=== PATIENT | male | born 1965 | race Caucasian/White ===

== ENCOUNTER 2018-09-07 11:59 | Emergency (ER) | payer OTHER ==
[2018-09-07 12:33] VITALS: BMI 36.9
--- NOTE | 2018-09-07 13:35 | PDOC ---
History of Present Illness - General Chief Complaint: Back Pain Stated Complaint: LOWER BACK PAIN Time Seen by Provider: 09/07/18 12:41 - History of Present Illness Initial Comments: 09/07/18 13:33 53-year-old male with past medical history significant for chronic back pain, GERD presents for evaluation of left-sided mid back pain. 2 weeks. He states the pain started about 2 weeks ago and resolved appear to Gent today without any precipitating trauma. He describes the pain as a constant dull ache exacerbated with motion with radiaion into the left groin. No systemic symptoms. Past History - Past Medical History Allergies/Adverse Reactions: Allergies Allergy/AdvReac Type Severity Reaction Status Date / Time No Known Allergies Allergy Verified 03/02/15 19:29 Home Medications: Ambulatory Orders Lamotrigine [Lamictal] 100 mg PO DAILY 09/08/14 Neomycin/Polymyxn/Hc [Cortisporin *Otic Suspenstion* -] 5 drop AD Q4HWA #1 bottle 09/08/14 Omeprazole [Prilosec (RX)] 20 mg PO DAILY 09/08/14 Wellbutrin - 25 mg PO DAILY 09/08/14 Diclofenac Potassium [Cataflam] 50 mg PO TID PRN #12 tablet 03/02/15 Methylprednisolone [Medrol Dose David] 4 mg PO ASDIR #21 tablet 09/07/18 COPD: No - Suicide/Smoking/Psychosocial Hx Smoking History: Current every day smoker Have you smoked in the past 12 months: Yes Number of Cigarettes Smoked Daily: 8 Information on smoking cessation initiated: No 'Breaking Loose' booklet given: 09/08/14 Hx Alcohol Use: No Drug/Substance Use Hx: No Substance Use Type: None Review of Systems - Review of Systems Constitutional: No: Fever : No: Dysuria, Hematuria Musculoskeletal: Yes: Back Pain *Physical Exam - Vital Signs Last Vital Signs Temp Pulse Resp BP Pulse Ox 98.4 F 101 H 21 H 131/84 100 09/07/18 12:29 09/07/18 12:29 09/07/18 12:29 09/07/18 12:29 09/07/18 12:29 - Physical Exam Comments: 09/07/18 13:34 Thoracic and lumbar spine skin color and temperature are normal. There is no CVA tenderness. There is a 3 cm circumferential firm fluctuant nontender mass at the left CV angle. No gross sensory motor deficits in bilateral lower extremities. Neurovascularly intact. ED Treatment Course - RADIOLOGY Radiology Studies Ordered: Category Date Time Status ABDOMEN & PELVIS CT W/O CONTR [CT] Stat CT Scan 09/07/18 13:20 Ordered Medical Decision Making - Medical Decision Making 09/07/18 13:34 The mass on the left side of thoracic spine appears to be a lipoma. 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 He is concerned about his back pain and feels there is something more than musculoskeletal pain going on he would like a CAT scan. I do not think this is unreasonable however I do not suspect a stone. 09/07/18 14:59 CT reviewed no acute process. Patient will musculoskeletal back pain. I will place him on a mental dosepak as he cannot take anti-inflammatories he has severe GERD and has been on omeprazole for greater than 4 years. Follow-up with orthopedic spine surgery. 09/07/18 15:02 Pt on, omeprazple, flexeril, and oxycodone at home. *DC/Admit/Observation/Transfer Diagnosis at time of Disposition: Back pain, Strain of fascia at thorax level - Discharge Dispostion Disposition: HOME Condition at time of disposition: Stable Decision to Admit order: No - Referrals Referrals: Olu Portillo MD [Primary Care Provider] - Naun Moreno MD [Staff Physician] - - Patient Instructions Printed Discharge Instructions: DI for Thoracic Back Pain, Thoracic Back Pain Additional Instructions: Please follow-up with your physician regarding the results of her CAT scan as we discussed. Please take the Medrol Dosepak as directed may continue with her Flexeril. Return to the emergency room for worsening symptoms also follow-up with orthopedic spine surgery for your lower back pain. Follow-up with orthopedic spine surgery in 1-2 days for further evaluation and treatment options. Please take the Medrol Dosepak as directed do not take any anti- inflammatory such as Advil Motrin Aleve or ibuprofen. He may take Tylenol as directed. - Post Discharge Activity
[2018-09-07 14:17] LABS: PH,URINE 5.5 (5.0-8.0); URINE APPEARANCE CLEAR; URINE BILIRUBIN NEGATIVE (NEGATIVE); URINE COLOR DK YELLOW; URINE GLUCOSE (UA) NEGATIVE (NEGATIVE); URINE KETONE TRACE (NEGATIVE); URINE LEUK ESTERASE NEGATIVE (NEGATIVE); URINE NITRITE NEGATIVE (NEGATIVE); URINE PROTEIN NEGATIVE (NEGATIVE)
[2018-09-07 15:12] VITALS: BP 135/90; PULSE 91; TEMP 98
== END 2018-09-07 15:12 | disposition home or self-care (01) ==
LOC: JERFT 11:59
DX: M54.5 Low back pain (principal); F17.210 Nicotine dependence, cigarettes, uncomplicated; S29.012A Strain of muscle and tendon of back wall of thorax, initial encounter; X58.XXXA Exposure to other specified factors, initial encounter; Y93.89 Activity, other specified; Y92.89 Other specified places as the place of occurrence of the external cause
CPT/HCPCS: 74176-TC; 81003; 87086; 99282-25

== ENCOUNTER 2019-05-26 14:35 | Emergency (ER) | payer OTHER ==
[2019-05-26 14:44] VITALS: BP 142/76; PULSE 84; TEMP 97.9; BMI 37.6
--- NOTE | 2019-05-26 14:46 | PDOC ---
Attending Attestation - Resident Resident Name: Edgar Rm - HPI HPI: 05/26/19 16:47 Pt presents to the ED complaining of a three week history of RUQ pain. Patient initially also had cough, and was diagnosed with PNA and treated with antibiotics. Cough resolved one week ago, but patient presents to the ED because RUQ pain is worsening. Denies fever, nausea or vomiting. Denies urinary complaints/ - Physicial Exam PE: 05/26/19 17:10 Agree with resident exam. Patient is alert and oriented and in no acute distress. Lungs are clear. Heart regular rate and rhythm without murmurs. Abdomen soft, nontender, non distended, withot guarding or rebound. - Medical Decision Making 05/26/19 17:20 Pt presents to the ED complaining of RUQ pain for three weeks worse in the last three days. Differential includes muscular pain, biliary disease, less likely PNA. CXR is negative for acute findings. Will check labs to evaluate for bilary disease and RUQ US.
--- NOTE | 2019-05-26 15:11 | PDOC ---
History of Present Illness - General Chief Complaint: Pain, Acute Stated Complaint: right abd/chest pain x 2 mnths Time Seen by Provider: 05/26/19 14:46 History Source: Patient Exam Limitations: No Limitations - History of Present Illness Initial Comments: 53 yo M with a hx of hepatitis C (treated), GERD, chronic back pain and bilateral foot pain, and polysubstance abuse hx (last use 2002; sober since then) presents to the emergency department with right flank pain that has been ongoing for 2 months with acute worsening over the past 3 days. Per the patient, he is followed by Dr. Bill Canales and had a cough with right flank pain 2 months ago and treated as a pneumonia with unknown named antibiotics. The cough resolved, however the patient has had persistence of right flank pain. He was given azithromycin on approximately 05/12/2019 and was recently (on 05/19/2019) on cefuroxime for presumed pneumonia. Per the patient, he denies SOB, cough, nausea, vomiting, chest pain, and hx of gallbladder and liver disease. The patient states he had nephrolithiasis 20-30 years ago with no recurrence since. Denies the following: fever, chills, dysuria, hematuria, diarrhea, and back pain. Endorses constipation and skin rash of tinea of which he is on diflucan since 05/19/2019. Past History - Past Medical History Allergies/Adverse Reactions: Allergies Allergy/AdvReac Type Severity Reaction Status Date / Time No Known Allergies Allergy Verified 05/26/19 14:43 Home Medications: Ambulatory Orders Nicotine [Nicotine Patch 21 mg/24 hr] 1 each TD DAILY 05/01/19 Omeprazole 20 mg PO DAILY 05/01/19 Oxycodone HCl/Acetaminophen [Endocet 5-325 Tablet] 0.5 tab PO BID PRN #30 tablet MDD 1 05/16/19 Varenicline Tartrate [Chantix] 1 each PO ASDIR #1 tab.ds.pk 05/16/19 Asthma: No Cancer: No Cardiac Disorders: No COPD: No CHF: No Diabetes: No GI Disorders: Yes (GERD) Disorders: No HTN: No Hypercholesterolemia: No Liver Disease: Yes (treated hep c) Seizures: No Thyroid Disease: No - Psycho Social/Smoking Cessation Hx Smoking History: Current every day smoker Have you smoked in the past 12 months: Yes Number of Cigarettes Smoked Daily: 4 Information on smoking cessation initiated: Yes 'Breaking Loose' booklet given: 09/08/14 Hx Alcohol Use: No Drug/Substance Use Hx: No Substance Use Type: Alcohol, Cocaine, Heroin, Opiates Hx Substance Use Treatment: Yes (detox , rehab, attends 12 step meetings) Review of Systems - Review of Systems Able to Perform ROS?: Yes Is the patient limited Macedonian proficient: No Constitutional: No: Chills, Diaphoresis, Fever, Weakness HEENTM: No: Eye Pain, Ear Pain, Nose Pain, Throat Pain, Mouth Pain Respiratory: No: Cough, Shortness of Breath, Hemoptysis Cardiac (ROS): No: Chest Pain, Lightheadedness, Palpitations, Chest Tightness ABD/GI: No: Constipated, Diarrhea, Nausea, Rectal Bleeding, Vomiting, Tarry Stools : Yes: Flank Pain (right). No: Burning, Dysuria, Hematuria Musculoskeletal: No: Back Pain, Joint Pain, Neck Pain Integumentary: Yes: Rash. No: Bruising, Erythema Neurological: No: Headache, Numbness Psychiatric: No: Change in Appetite Endocrine: No: Unexplained Weight Loss Hematologic/Lymphatic: No: Anemia *Physical Exam - Vital Signs Last Vital Signs Temp Pulse Resp BP Pulse Ox 97.9 F 84 18 142/76 98 05/26/19 14:36 05/26/19 14:36 05/26/19 14:36 05/26/19 14:36 05/26/19 14:36 - Physical Exam General Appearance: Yes: Nourished, Appropriately Dressed, Obese. No: Apparent Distress, Intoxicated HEENT: positive: EOMI, CHARLIE, Normal Voice, Symmetrical, Pharynx Normal, Hearing Grossly Normal. negative: Pale Conjunctivae, Scleral Icterus (R), Scleral Icterus (L), Muffled/Hoarse voice, Pharyngeal Erythema, Tonsillar Exudate, Tonsillar Erythema, Nasal Congestion, Rhinorrhea, Sinus Tenderness, Excessive drooling Neck: positive: Trachea midline, Supple. negative: Tender, Lymphadenopathy (R), Lymphadenopathy (L), Tender lateral, Tender midline Respiratory/Chest: positive: Lungs Clear, Normal Breath Sounds. negative: Chest Tender, Respiratory Distress, Accessory Muscle Use, Rhonchi, Stridor, Wheezing, Hyperresonant Cardiovascular: positive: Regular Rhythm, Regular Rate, S1, S2. negative: Systolic Murmur Gastrointestinal/Abdominal: positive: Normal Bowel Sounds, Flat, Soft. negative: Tender Lymphatic: negative: Adenopathy Musculoskeletal: positive: Normal Inspection. negative: CVA Tenderness, Vertebral Tenderness Extremity: positive: Normal Capillary Refill, Normal Range of Motion. negative: Normal Inspection (tinea corpis noted on the UE bilaterally. ), Tender, Swelling, Calf Tenderness Integumentary: positive: Normal Color, Dry, Warm, Rash (tinea noted on examination (reference extremity)). negative: Swelling, Ecchymosis Neurologic: positive: Fully Oriented, Alert, Normal Mood/Affect ED Treatment Course - LABORATORY CBC & Chemistry Diagram: 05/26/19 16:10 05/26/19 16:07 Medical Decision Making - Medical Decision Making 53 yo M with a hx of hepatitis C (treated), GERD, chronic back pain and bilateral foot pain, and polysubstance abuse hx (last use 2002; sober since then) presents to the emergency department with right flank pain that has been ongoing for 2 months with acute worsening over the past 3 days. Initial vitals: Initial Vital Signs Temp Pulse Resp BP Pulse Ox 97.9 F 84 18 142/76 98 05/26/19 14:36 05/26/19 14:36 05/26/19 14:36 05/26/19 14:36 05/26/19 14:36 Work up: patient presents with right flank pain denies hx of gallbladder disease and liver disease. the patient was recently treated with anti-fungal which can have hepatic toxicity. will obtain labs to evaluate infectious state and alt/ast. POCUS of the gallbladder: no cholelithiasis. cbd within normal limits. gb wall diameter within normal limits. no distension of GB. no hydronephrosis of the right kidney WIll obtain US of the liver and gallbladder. Laboratory Tests 05/26/19 05/26/19 05/26/19 16:07 16:10 16:22 WBC 8.8 RBC 4.57 Hgb 15.0 Hct 43.3 MCV 94.8 MCH 32.9 MCHC 34.7 RDW 13.0 Plt Count 287 MPV 8.6 Absolute Neuts (auto) 5.2 Neutrophils % 59.9 Lymphocytes % 30.3 Monocytes % 8.3 Eosinophils % 0.8 Basophils % 0.7 Sodium 134 L Potassium 4.2 Chloride 106 Carbon Dioxide 25 Anion Gap 3 L BUN 12.0 Creatinine 1.0 Est GFR (CKD-EPI)AfAm 99.15 Est GFR (CKD-EPI)NonAf 85.55 Random Glucose 100 Calcium 8.9 Total Bilirubin 0.4 AST 48 H ALT 67 H Alkaline Phosphatase 58 Total Protein 7.3 Albumin 4.2 Urine Color Yellow Urine Appearance Clear Urine pH 6.5 Urine Protein Negative Urine Glucose (UA) Negative Urine Ketones Negative Urine Blood Negative Urine Nitrite Negative Urine Bilirubin Negative Urine Urobilinogen 0.2 Ur Leukocyte Esterase Negative alt and ast elevated no blood noted in the UA, less likely nephrolithiasis. Awaiting results of the abdomen US. 05/26/19 18:19 US negative for acute processes in the liver and gallbladder. diffuse fatty liver noted. Advised hte patient to follow up with the caster helper within 1 week after discharge. the patient understood this and agrees to the plan The patient has marshall of symptoms after toradol administration Dispo: Discharge Discharge - Discharge Information Problems reviewed: Yes Clinical Impression/Diagnosis: Fatty liver Condition: Stable - Admission No - Follow up/Referral Referrals: [facility] [place] [facility] [Provider Group] Oralia Porter MD [Staff Physician] - - Patient Discharge Instructions Patient Printed Discharge Instructions: Nonalcoholic Fatty Liver Disease, DI for Nonalcoholic Fatty Liver Disease Additional Instructions: Please follow up with the caster helper regarding your elevated liver values and diffuse fatty liver within 1 week after discharge. Please follow up with your primary medical doctor in 1 week after discharge. Please return to the emergency department if you have worsening symptoms or new concerning symptoms. Thank you. - Post Discharge Activity
[2019-05-26 16:28] LABS: BASO % 0.7 % (0-2.0); EOS % 0.8 % (0-4.5); HEMATOCRIT 43.3 % (35.4-49); LYMPH % 30.3 % (8-40); MCH 32.9 pg (25.7-33.7); MCHC 34.7 g/dl (32.0-35.9); MEAN CELL VOLUME 94.8 fl (80-96); MEAN PLT VOLUME 8.6 fl (7.5-11.1); MONO % 8.3 % (3.8-10.2); NEUT % 59.9 % (42.8-82.8); PLATELET COUNT 287 K/MM3 (134-434); RBC 4.57 M/mm3 (4.00-5.60); WHITE BLOOD COUNT 8.8 K/mm3 (4.0-10.8)
[2019-05-26 16:35] LABS: ALBUMIN 4.2 g/dl (3.4-5.0); BILIRUBIN,TOTAL 0.4 mg/dl (0.2-1); CALCIUM 8.9 mg/dl (8.5-10); POTASSIUM 4.2 mmol/L (3.5-5.1); TOT PROT 7.3 g/dl (6.4-8.2)
[2019-05-26] MEDS ORDERED: KETOROLAC TROMETHAMINE 15 MG/ML VIAL IVPUSH ONE (16:48)
[2019-05-26] MEDS ORDERED: KETOROLAC TROMETHAMINE 15 MG/ML VIAL ONE (16:58)
== END 2019-05-26 18:27 | disposition home or self-care (01) ==
LOC: FER 14:35
PROC: 3E0333Z Introduction of Anti-inflammatory into Peripheral Vein, Percutaneous Approach (ICD-10-PCS; principal; 2019-05-26)
DX: K76.0 Fatty (change of) liver, not elsewhere classified (principal); B19.20 Unspecified viral hepatitis C without hepatic coma; K21.9 Gastro-esophageal reflux disease without esophagitis; G89.29 Other chronic pain; F19.10 Other psychoactive substance abuse, uncomplicated; F17.210 Nicotine dependence, cigarettes, uncomplicated
CPT/HCPCS: 36415; 71046-TC-FY; 76705-TC; 80053; 81003; 83690; 85025; 87086; 96374; 99285-25

== ENCOUNTER 2019-09-27 18:23 | Emergency (ER) | payer OTHER ==
[2019-09-27 18:30] VITALS: BP 136/85; PULSE 84; TEMP 98.1; BMI 37.6
[2019-09-27] MEDS ORDERED: AMPICILLIN NA/SULBACTAM NA 3 GM in SODIUM CHLORIDE 100 ML IVPB ONE (18:46)
[2019-09-27] MEDS ORDERED: AMPICILLIN NA/SULBACTAM NA 3 GM VIAL ONE (18:57)
--- NOTE | 2019-09-27 18:59 | PDOC ---
Documentation entered by Paty Collier SCRIBE, acting as scribe for Thaddeus Lane MD. Thaddeus Lane MD: This documentation has been prepared by the Nando medina Maria, SCRIBE, under my direction and personally reviewed by me in its entirety. I confirm that the documentation accurately reflects all work, treatment, procedures, and medical decision making performed by me. History of Present Illness - General Chief Complaint: Ear Problem Stated Complaint: LEFT EAR PAIN Time Seen by Provider: 09/27/19 18:36 History Source: Patient Exam Limitations: No Limitations - History of Present Illness Initial Comments: 09/27/19 18:57 The patient is a 54 year old male with a significant past medical history of hepatitis C (treated), GERD, chronic back pain and bilateral foot pain, and polysubstance abuse hx (last use 2002; sober since then) who presents to the emergency department with left ear pain. As per patient, he was swimming in his friend's swimming pool and felt as though there was water in his ear and states he used a Q-tip and hydrogen peroxide with no release prompting him to [facility] (09/25/2019) where he was prescribed antibiotics for his pain without relief of pain prompting him to [facility]. 10/11/19 15:32 Physical exam: Alert and oriented well-developed well-nourished no acute distress cooperative Afebrile, vital signs normal Right ear canal and TM clear. Left ear canal swollen, small amount of debris present in canal, TM not visualized. No erythema of the ear canal or of the external ear/face. No induration or tenderness of the surrounding fascial tissue. No adenopathy. Impression: External otitis, Plan: Dose of intravenous antibiotics, followed by p.o. Follow-up ENT 24 hours for further evaluation and possible wick insertion. No sign of serious mastoid or facial infection. Past History - Medical History Allergies/Adverse Reactions: Allergies Allergy/AdvReac Type Severity Reaction Status Date / Time No Known Allergies Allergy Verified 05/26/19 14:43 Home Medications: Ambulatory Orders Nicotine [Nicotine Patch 21 mg/24 hr] 1 each TD DAILY 05/01/19 Omeprazole 20 mg PO DAILY 05/01/19 Gabapentin [Neurontin -] 300 mg PO BID 09/13/19 Varenicline Tartrate [Chantix] 1 mg PO BID #30 tablet 09/13/19 Betamethasone Dipropionate [Diprolene 0.05% Ointment -] 1 applic TP DAILY 09/14/19 Ibuprofen 800 mg PO BID PRN #30 tablet 09/14/19 Rosuvastatin [Crestor -] 5 mg PO HS 09/14/19 Docusate Sodium [Colace -] 100 mg PO TID #90 capsule 10/10/19 Oxycodone HCl/Acetaminophen [Percocet 10-325 mg Tablet] 1 each PO TID PRN #21 tablet MDD 3 10/10/19 Asthma: No Cancer: No Cardiac Disorders: No COPD: No CHF: No Diabetes: No GI Disorders: Yes (GERD) Disorders: No HTN: No Hypercholesterolemia: No Liver Disease: Yes (treated hep c) Seizures: No Thyroid Disease: No Other medical history: HERNIATED DISC,ARTHRITIS - Psycho-Social/Smoking History Smoking History: Never smoked Have you smoked in the past 12 months: Yes Number of Cigarettes Smoked Daily: 4 Information on smoking cessation initiated: No 'Breaking Loose' booklet given: 05/26/19 - Substance Abuse Hx (Audit-C & DAST Scrn) How often the patient has a drink containing alcohol: Never Score: In Men: 4 or > Positive; In Women: 3 or > Positive: 0 Screen Result (Pos requires Nsg. Audit-10AR): Negative In the last yr the pt used illegal drug/Rx for NonMed reason: No Score: Yes response is considered Positive: 0 Screen Result (Positive result requires Nsg. DAST-10): Negative Review of Systems - Review of Systems Able to Perform ROS?: Yes Comments:: 09/27/19 18:57 CONSTITUTIONAL: Absent: fever, no chills, no fatigue EYES: Absent: visual changes ENT:+ear pain. Absent: no sore throat CARDIOVASCULAR: Absent: chest pain, no palpitations RESPIRATORY: Absent: cough, no SOB GI: Absent: abdominal pain, no nausea, no vomiting, no constipation, no diarrhea GENITOURINARY: Absent: dysuria, no frequency, no hematuria MUSKULOSKELETAL: Absent: back pain, no arthralgia, no myalgia SKIN: Absent: rash NEURO: Absent: headache *Physical Exam - Vital Signs Last Vital Signs Temp Pulse Resp BP Pulse Ox 98.1 F 84 16 136/85 97 09/27/19 18:24 09/27/19 18:24 09/27/19 18:24 09/27/19 18:24 09/27/19 18:24 - Physical Exam 09/27/19 18:57 GENERAL: Well-appearing, well-nourished. No apparent distress. HEENT: +Right ear was clear, left ear canal was swollen with considerable debri visible. was not visualized. No sign of inflammation of surrounding tissues or erythema. Normocephalic, atraumatic. PERRL, EOM intact. CARDIOVASCULAR: Normal S1, S2. Regular rate and rhythm. PULMONARY: Clear to auscultation bilaterally. ABDOMEN: Soft, non-distended, non-tender. EXTREMITIES: Normal ROM in all four extremities. No gross deformities. SKIN: Warm, dry. No rash NEUROLOGICAL: No focal neurological deficits. Discharge - Discharge Information Problems reviewed: Yes Clinical Impression/Diagnosis: Otitis externa Qualifiers: Otitis externa type: swimmer's ear Chronicity: acute Laterality: left Qualified Code(s): H60.332 - Swimmer's ear, left ear Condition: Stable Disposition: HOME - Admission No - Follow up/Referral Referrals: Collins Flores MD [Staff Physician] - Call tomorrow - Patient Discharge Instructions Patient Printed Discharge Instructions: DI for Otitis Externa Additional Instructions: Continue your pain medication as directed Change antibiotics as directed See ENT specialist tomorrow as recommended. - Post Discharge Activity
== END 2019-09-27 19:44 | disposition home or self-care (01) ==
LOC: FER 18:23
PROC: 3E033GC Introduction of Other Therapeutic Substance into Peripheral Vein, Percutaneous Approach (ICD-10-PCS; principal; 2019-09-27)
DX: H60.332 Swimmer's ear, left ear (principal)
CPT/HCPCS: 99284-25

== ENCOUNTER 2020-09-03 12:22 | Emergency (ER) | payer OTHER ==
[2020-09-03 12:37] VITALS: BP 137/104; PULSE 94; TEMP 99.2; BMI 36.9
== END 2020-09-03 13:18 | disposition home or self-care (01) ==
LOC: FER 12:22
DX: L03.012 Cellulitis of left finger (principal); H60.501 Unspecified acute noninfective otitis externa, right ear
CPT/HCPCS: 99282-25

== ENCOUNTER 2021-01-29 13:55 | Emergency (ER) | payer OTHER ==
[2021-01-29 14:15] VITALS: BP 143/81; PULSE 77; TEMP 98
[2021-01-29] MEDS ORDERED: KETOROLAC TROMETHAMINE 30 MG/1 ML VIAL IM ONE (14:40)
[2021-01-29] MEDS ORDERED: KETOROLAC TROMETHAMINE 30 MG/1 ML VIAL ONE (14:48)
== END 2021-01-29 15:29 | disposition home or self-care (01) ==
LOC: JERFT 13:55
PROC: 3E023GC Introduction of Other Therapeutic Substance into Muscle, Percutaneous Approach (ICD-10-PCS; principal; 2021-01-29)
DX: M79.671 Pain in right foot (principal)
CPT/HCPCS: 73610-TC-RT-FY; 73630-TC-RT-FY; 99284-25

== ENCOUNTER 2022-08-28 09:22 | Emergency (ER) | payer OTHER ==
[2022-08-28 09:45] VITALS: BP 142/104; PULSE 80; RESP 19; TEMP 98; BMI 37.6
== END 2022-08-28 10:30 | disposition home or self-care (01) ==
LOC: FER 09:22
DX: M25.572 Pain in left ankle and joints of left foot (principal)
CPT/HCPCS: 73610-TC-LT-FY; 99283-25

== ENCOUNTER 2023-11-27 14:52 | Emergency (ER) | payer OTHER ==
[2023-11-27 15:00] VITALS: BP 163/98; PULSE 86; RESP 18; TEMP 98.1; BMI 36.1
[2023-11-27] MEDS ORDERED: LIDOCAINE 5% TOPICAL PATCH ONE (15:46)
[2023-11-27] MEDS: LIDOCAINE 5% TOPICAL PATCH TP ONE (15:48)
[2023-11-27] MEDS ORDERED: LIDOCAINE PATCH REMOVAL MC SCH (22:00)
== END 2023-11-27 17:05 | disposition home or self-care (01) ==
LOC: FER 14:52
DX: R07.89 Other chest pain (principal); X50.1XXA Overexertion from prolonged static or awkward postures, initial encounter
CPT/HCPCS: 71101-TC-RT-FY; 99283-25

== ENCOUNTER 2024-12-05 20:28 | Emergency (ER) | payer OTHER ==
[2024-12-05 20:52] VITALS: TEMP 98.1; BMI 38.4
[2024-12-05] MEDS ORDERED: METOCLOPRAMIDE HCL INJECTION 10 MG/2 ML VIAL ONE (21:27)
[2024-12-05] MEDS: SODIUM CHLORIDE 0.9% 500 ML INFUS.BAG IV ONE (21:45)
[2024-12-05] MEDS: METOCLOPRAMIDE HCL INJECTION 10 MG/2 ML VIAL IVPB ONE (21:46)
[2024-12-05 21:48] LABS: ABSOLUTE IMMATURE GRANULOCYTES 0.06 x10^3/uL (0.0-0.031); BASOPHILS # 0.08 x10^3/uL (0.01-0.08); EOSINOPHIL % 0.9 % (0.8-7.0); EOSINOPHILS # 0.12 x10^3/uL (0.04-0.54); MCHC 35.2 g/dl (32.3-36.5); MEAN CELL VOLUME 89.7 fl (79.0-92.2); MEAN PLT VOLUME 10.1 fl (9.4-12.4); MONOCYTE # 1.06 x10^3/uL (0.30-0.82); MONOCYTE % 7.9 % (5.3-12.2); RDW 12.6 % (12.2-16.1)
[2024-12-05 22:08] LABS: GLUCOSE,RANDOM 203.0 mg/dL (74-106); TOT PROT 8.6 g/dl (6.4-8.2)
[2024-12-05 22:09] LABS: CO2 25.0 mmol/L (21-32)
[2024-12-05 22:11] LABS: ALK PHOS 81.0 U/L (40-150)
[2024-12-05 22:14] LABS: CREATININE 1.03 mg/dL (0.55-1.3); SGOT/AST 86.0 U/L (5-34); SGPT/ALT 154.0 U/L (0-55)
[2024-12-05 22:36] LABS: HIV INTERPRETATION NEGATIVE (NEGATIVE)
[2024-12-05 22:42] LABS: HCV DIAGNOSTIC IN-HOUSE W/RFLX REACTIVE (NONREACTIVE)
[2024-12-05] MEDS ORDERED: MECLIZINE HCL 25 MG TABLET (FP) PO ONE (22:57)
[2024-12-05 23:10] VITALS: BP 130/84; PULSE 85; RESP 19
== END 2024-12-05 23:11 | disposition home or self-care (01) ==
LOC: JER 20:28
PROC: 3E033GC Introduction of Other Therapeutic Substance into Peripheral Vein, Percutaneous Approach (ICD-10-PCS; principal; 2024-12-05)
DX: R42 Dizziness and giddiness (principal); R51.9 Headache, unspecified
CPT/HCPCS: 36415; 71045-TC-FY; 80053; 83735; 84100; 84484; 85025; 86803; 87389; 87522; 93005; 93010; 96374; 99285-25